=== PATIENT | male | born 1955 | race Caucasian/White ===

== ENCOUNTER 2017-03-21 13:19 | Emergency (ER) | payer OTHER ==
[~2017-03-21] VITALS: Ht 170.2 cm; Wt 72.7 kg
[~2017-03-21 13:19] MED LIST: INSLAN SQ; INSNOV SQ
[2017-03-21] MEDS ORDERED: METF500T4 PO (13:35)
[2017-03-21] MEDS ORDERED: ASPI-1093 PO (13:35)
[2017-03-21 14:05] VITALS: BP 141/71
== END 2017-03-21 14:48 | disposition home or self-care (01) ==
LOC: EMS 13:22
DX: T81.31XA Disruption of external operation (surgical) wound, not elsewhere classified, initial encounter (principal); I10 Essential (primary) hypertension; E78.00 Pure hypercholesterolemia, unspecified; E11.9 Type 2 diabetes mellitus without complications; J45.909 Unspecified asthma, uncomplicated; F17.210 Nicotine dependence, cigarettes, uncomplicated; M19.90 Unspecified osteoarthritis, unspecified site; F39 Unspecified mood [affective] disorder; Z79.4 Long term (current) use of insulin; Z79.82 Long term (current) use of aspirin; Z85.820 Personal history of malignant melanoma of skin; Y92.89 Other specified places as the place of occurrence of the external cause
CPT/HCPCS: 82962; 99282

== ENCOUNTER 2017-03-30 13:00 | Emergency (ER) | payer OTHER ==
[~2017-03-30] VITALS: Ht 172.7 cm; Wt 63.6 kg
[~2017-03-30 13:00] MED LIST changes: +ASPI-1093 PO; +METF500T4 PO
[2017-03-30 13:12] LABS: GLUCOSE,POINT OF CARE 312 MG/DL (70-110)
[2017-03-30 14:29] VITALS: BP 144/70
== END 2017-03-30 14:40 | disposition home or self-care (01) ==
LOC: EMS 13:03
DX: T81.31XA Disruption of external operation (surgical) wound, not elsewhere classified, initial encounter (principal); I10 Essential (primary) hypertension; E11.9 Type 2 diabetes mellitus without complications; F17.210 Nicotine dependence, cigarettes, uncomplicated; Z79.4 Long term (current) use of insulin; Z79.82 Long term (current) use of aspirin
CPT/HCPCS: 82962; 87070; 87205; 99284

== ENCOUNTER 2017-10-05 13:10 | Emergency (ER) | payer OTHER ==
[~2017-10-05] VITALS: Ht 170.2 cm; Wt 70.5 kg
[~2017-10-05 13:10] MED LIST changes: -ASPI-1093 PO; +ASPI-1182 PO
[2017-10-05] MEDS ORDERED: MUPIROCIN CALCIUM 2% 22 GM OINTMENT TP ONE (14:45)
[2017-10-05 14:55] VITALS: BP 130/85
[2017-10-05] MEDS ORDERED: MetFORMIN HCL 500 MG TABLET PO ONE (15:00)
== END 2017-10-05 15:22 | disposition home or self-care (01) ==
LOC: EMS 13:18
DX: E11.621 Type 2 diabetes mellitus with foot ulcer (principal); E11.65 Type 2 diabetes mellitus with hyperglycemia; L97.529 Non-pressure chronic ulcer of other part of left foot with unspecified severity; F17.210 Nicotine dependence, cigarettes, uncomplicated; Z85.820 Personal history of malignant melanoma of skin; I10 Essential (primary) hypertension; M19.90 Unspecified osteoarthritis, unspecified site; Z79.4 Long term (current) use of insulin; Z79.82 Long term (current) use of aspirin
CPT/HCPCS: 99283; 99406

== ENCOUNTER 2019-05-16 17:35 | Emergency (ER) | payer OTHER ==
[~2019-05-16] VITALS: Ht 165.1 cm; Wt 65.9 kg
[~2019-05-16 17:35] MED LIST changes: +METF-960 PO; -METF500T4 PO
[2019-05-16 18:26] LABS: GLUCOSE,POINT OF CARE 241 MG/DL (70-110)
[2019-05-16] MEDS ORDERED: DEXAMETHASONE SOD PHOS 4 MG/ML 5 ML VIAL IM ONE (18:45)
[2019-05-16 19:00] VITALS: BP 124/68
== END 2019-05-16 19:13 | disposition home or self-care (01) ==
LOC: EMS 17:35
DX: L25.9 Unspecified contact dermatitis, unspecified cause (principal); E11.9 Type 2 diabetes mellitus without complications; I10 Essential (primary) hypertension; F17.210 Nicotine dependence, cigarettes, uncomplicated
CPT/HCPCS: 82962; 96372; 99283; J1100

== ENCOUNTER 2019-05-18 15:14 | Emergency (ER) | payer OTHER ==
[~2019-05-18] VITALS: Ht 165.1 cm; Wt 72.0 kg
[2019-05-18] MEDS ORDERED: DIPH25 PO (15:25)
[2019-05-18 15:35] LABS: GLUCOSE,POINT OF CARE 186 MG/DL (70-110)
[2019-05-18] MEDS ORDERED: PRAMOXINE HCL/BENZYL ALCOHOL 1% 35 GM GEL TP ONE (17:00)
[2019-05-18] MEDS ORDERED: MINERAL OIL/PETROLATUM 120 GM CREAM TP ONE (17:00)
[2019-05-18 18:01] VITALS: BP 129/75
== END 2019-05-18 18:00 | disposition home or self-care (01) ==
LOC: EMS 15:16
DX: L30.9 Dermatitis, unspecified (principal); E11.9 Type 2 diabetes mellitus without complications; I10 Essential (primary) hypertension; F17.210 Nicotine dependence, cigarettes, uncomplicated
CPT/HCPCS: 99406

== ENCOUNTER 2019-07-09 16:43 | Emergency (ER) | payer OTHER ==
[~2019-07-09] VITALS: Ht 165.1 cm; Wt 72.0 kg
[~2019-07-09 16:43] MED LIST changes: -ASPI-1182 PO; +DIPH25 PO; -INSLAN SQ; -INSNOV SQ; -METF-960 PO
[2019-07-09 18:55] VITALS: BP 137/79
== END 2019-07-09 19:17 | disposition home or self-care (01) ==
LOC: EMS 16:43
DX: S09.90XA Unspecified injury of head, initial encounter (principal); I10 Essential (primary) hypertension; E11.9 Type 2 diabetes mellitus without complications; M19.90 Unspecified osteoarthritis, unspecified site; F17.210 Nicotine dependence, cigarettes, uncomplicated; Z98.890 Other specified postprocedural states; Z85.820 Personal history of malignant melanoma of skin; W01.198A Fall on same level from slipping, tripping and stumbling with subsequent striking against other object, initial encounter; Y93.89 Activity, other specified; Y92.89 Other specified places as the place of occurrence of the external cause; Y99.8 Other external cause status

== ENCOUNTER 2020-03-11 14:14 | Emergency (ER) | payer OTHER ==
[~2020-03-11] VITALS: Ht 162.6 cm; Wt 68.2 kg
[2020-03-11] MEDS ORDERED: ACETAMINOPHEN 500 MG TABLET PO ONE (14:30)
[2020-03-11] MEDS ORDERED: PERTUSS(ACELL),DIPH,TET VAC/PF 0.5 ML VIAL IM ONE (14:30)
[2020-03-11] MEDS ORDERED: LIDOCAINE 1%/EPI 1:200,000/PF 10 ML VIAL INJ ONE (14:30)
[2020-03-11 15:09] LABS: BASOPHILS % (AUTO) 0.1 % (0.0-2.0); EOSINOPHILS % (AUTO) 0.1 % (1.0-6.0); HEMATOCRIT 40.2 % (41-53); HEMOGLOBIN 13.6 g/dL (13.5-17.5); LYMPHOCYTES # (AUTO) 0.6 K/uL (1.0-4.8); LYMPHOCYTES % (AUTO) 7.3 % (22.0-44.0); MEAN CORPUSCULAR HEMOGLOBIN 32.1 pg (26.0-34.0); MEAN CORPUSCULAR HGB CONC 33.8 G/dL (31.0-37.0); MEAN CORPUSCULAR VOLUME 95 fL (80-100); MONOCYTES # (AUTO) 0.4 K/uL (0.1-1.0); MONOCYTES % (AUTO) 4.8 % (2.0-9.0); NEUTROPHILS # (AUTO) 7.6 K/uL (1.8-7.7); PLATELET COUNT (AUTO) 253 K/uL (150-450); RED BLOOD CELL COUNT(AUTO) 4.23 MIL/uL (4.50-5.90); RED CELL DISTRIBUTION WIDTH 15.1 % (11.5-14.5)
[2020-03-11 15:23] LABS: NEUTROPHILS % (AUTO) 87.7 % (40.0-70.0)
[2020-03-11 15:35] LABS: INR 0.9 (0.9-1.1); PROTHROMBIN TIME 9.9 SEC (9.4-11.6)
[2020-03-11 15:49] LABS: ANION GAP 13 mmol/L (8-16); CALCIUM, TOTAL 9.7 mg/dL (8.8-10.5); CARBON DIOXIDE 24 mmol/L (22-29); CHLORIDE 99 mmol/L (98-107); CREATININE 1.02 mg/dL (0.60-1.30); GLOMERULAR FILTR. RATE CALC > 60 mL/min (>60); GLUCOSE,RANDOM 319 mg/dL (70-110); POTASSIUM 4.6 mmol/L (3.5-5.1); SODIUM SERUM 136 mmol/L (136-145); UREA NITROGEN, BLOOD 11 mg/dL (7-18)
[2020-03-11 16:13] LABS: ALANINE AMINOTRANSFERASE 36 U/L (12-78); ALBUMIN 4.1 g/dL (3.4-5.0); ALKALINE PHOSPHATASE 95 U/L (46-116); ASPARTATE AMINOTRANSFERASE 30 U/L (15-37); BILIRUBIN,TOTAL 0.5 mg/dL (0.1-1.0); CREATINE KINASE, TOTAL ONLY 494 U/L (39-308); TOTAL PROTEIN, SERUM 7.8 g/dL (6.4-8.2)
[2020-03-11 16:18] LABS: B-TYPE NATRIURETIC PEPTIDE 16 pg/mL (0-100)
[2020-03-11] MEDS ORDERED: BACITRACIN 0.9 GM PACKET OINTMENT TP ONE (16:30)
[2020-03-11 16:37] VITALS: BP 135/78
== END 2020-03-11 17:31 | disposition home or self-care (01) ==
LOC: EMS 14:15
DX: S01.01XA Laceration without foreign body of scalp, initial encounter (principal); R55 Syncope and collapse; I10 Essential (primary) hypertension; E11.9 Type 2 diabetes mellitus without complications; F17.210 Nicotine dependence, cigarettes, uncomplicated; W18.39XA Other fall on same level, initial encounter; Y93.89 Activity, other specified; Y92.89 Other specified places as the place of occurrence of the external cause; Y99.8 Other external cause status
CPT/HCPCS: 12002; 36415; 70450; 71045; 72125; 80053; 82550; 82962; 83880; 84484; 85025; 85610; 85730; 90471; 90715; 93005; 99285; 99406; J3490

== ENCOUNTER 2020-03-21 08:47 | Emergency (ER) | payer OTHER ==
[~2020-03-21] VITALS: Ht 162.6 cm; Wt 65.9 kg
[2020-03-21] MEDS ORDERED: METF-960 PO (08:54)
[2020-03-21 09:59] LABS: BASOPHILS % (AUTO) 0.3 % (0.0-2.0); EOSINOPHILS % (AUTO) 0.5 % (1.0-6.0); HEMATOCRIT 38.8 % (41-53); HEMOGLOBIN 13.4 g/dL (13.5-17.5); LYMPHOCYTES # (AUTO) 0.8 K/uL (1.0-4.8); MEAN CORPUSCULAR HEMOGLOBIN 32.8 pg (26.0-34.0); MEAN CORPUSCULAR HGB CONC 34.6 G/dL (31.0-37.0); MEAN CORPUSCULAR VOLUME 95 fL (80-100); MONOCYTES # (AUTO) 0.4 K/uL (0.1-1.0); MONOCYTES % (AUTO) 4.6 % (2.0-9.0); NEUTROPHILS # (AUTO) 6.4 K/uL (1.8-7.7); NEUTROPHILS % (AUTO) 83.6 % (40.0-70.0); PLATELET COUNT (AUTO) 294 K/uL (150-450); RED BLOOD CELL COUNT(AUTO) 4.08 MIL/uL (4.50-5.90); RED CELL DISTRIBUTION WIDTH 14.7 % (11.5-14.5)
[2020-03-21 10:00] LABS: ANION GAP 11 mmol/L (8-16); CALCIUM, TOTAL 9.9 mg/dL (8.8-10.5); CARBON DIOXIDE 28 mmol/L (22-29); CHLORIDE 93 mmol/L (98-107); CREATININE 1.12 mg/dL (0.60-1.30); GLOMERULAR FILTR. RATE CALC > 60 mL/min (>60); GLUCOSE,RANDOM 354 mg/dL (70-110); POTASSIUM 4.4 mmol/L (3.5-5.1); SODIUM SERUM 132 mmol/L (136-145); UREA NITROGEN, BLOOD 19 mg/dL (7-18)
[2020-03-21] MEDS ORDERED: SODIUM CHLORIDE 0.9% 1,000 ML IV ONE (10:00)
[2020-03-21] MEDS ORDERED: INSULIN REGULAR, HUMAN 100 UNITS/ML IVP ONE (10:00)
[2020-03-21 10:06] LABS: ALANINE AMINOTRANSFERASE 27 U/L (12-78); ALBUMIN 3.7 g/dL (3.4-5.0); ALKALINE PHOSPHATASE 91 U/L (46-116); ASPARTATE AMINOTRANSFERASE 16 U/L (15-37); BILIRUBIN,TOTAL 0.4 mg/dL (0.1-1.0)
[2020-03-21 11:20] VITALS: BP 115/62
[2020-03-21 15:20] LABS: GLUCOSE,POINT OF CARE 261 MG/DL (70-110)
== END 2020-03-21 11:23 | disposition home or self-care (01) ==
LOC: EMS 08:50
DX: S01.01XD Laceration without foreign body of scalp, subsequent encounter (principal); E11.65 Type 2 diabetes mellitus with hyperglycemia; F17.210 Nicotine dependence, cigarettes, uncomplicated; I10 Essential (primary) hypertension; X58.XXXD Exposure to other specified factors, subsequent encounter
CPT/HCPCS: 36415; 80053; 82962; 85025; 96361; 96374; 99283; 99406; J1815; J7030

== ENCOUNTER 2020-03-21 14:04 | Emergency (ER) | payer OTHER ==
[~2020-03-21] VITALS: Ht 165.1 cm; Wt 70.5 kg
[~2020-03-21 14:04] MED LIST changes: -DIPH25 PO; +METF-960 PO
[2020-03-21] MEDS ORDERED: SODIUM CHLORIDE 0.9% 1,000 ML IV ONE (15:45)
[2020-03-21 16:58] VITALS: BP 112/67
== END 2020-03-21 17:06 | disposition home or self-care (01) ==
LOC: EMS 14:05
DX: R42 Dizziness and giddiness (principal); E11.9 Type 2 diabetes mellitus without complications; I10 Essential (primary) hypertension; F17.210 Nicotine dependence, cigarettes, uncomplicated
CPT/HCPCS: 36415; 82962; 93005; 99284; G0480; 82948